=== PATIENT | female | born 1985 | race Hispanic/Latino ===

== ENCOUNTER 2022-11-04 05:24 | Inpatient (IN) | payer MEDICAID, OTHER ==
[2022-11-01 11:07] LABS: Hemoglobin 11.8 g/dL (12.0-15.5); Platelet Count 183 10x3/uL (150-450)
[2022-11-01 11:40] LABS: HBSAg Index 0.14 S/CO (0-0.99); Hep B Surf Ag Non-Reactive S/CO (NonReactive)
[2022-11-01 11:41] LABS: Syphilis Antibody Nonreactive (Nonreactive); Syphilis Antibody Index 0.05 S/CO (<1.00 Non-Reactive)
[2022-11-04 05:41] VITALS: BMI 31.1
[2022-11-04] MEDS ORDERED: Promethazine HCl 25 MG/ML VIAL IM PRN ×3 (05:47→10:36)
[2022-11-04] MEDS ORDERED: Carboprost 250 MCG/ML AMP IM PRN (05:47)
[2022-11-04] MEDS ORDERED: Misoprostol 200 MCG TAB PR PRN ×2 (05:47→10:36)
[2022-11-04] MEDS ORDERED: Ondansetron PF 4 MG/2 ML Vial IVP PRN ×3 (05:47→10:36)
[2022-11-04] MEDS ORDERED: Tranexamic Acid 1,000 MG/10 ML VIAL IVP PRN (05:47)
[2022-11-04] MEDS ORDERED: Methylergonovine 0.2 MG/ML VIAL IM PRN (05:47)
[2022-11-04] MEDS ORDERED: Famotidine/PF 20 mg/2ml Vial SLOW IVP PRN (05:47)
[2022-11-04] MEDS ORDERED: Bicitra 30 ML UDCUP PO PRN (05:47)
[2022-11-04] MEDS ORDERED: hydrALAZINE 20 MG/ML VIAL SLOW IVP PRN ×2 (05:47→10:36)
[2022-11-04] MEDS ORDERED: Diphenoxylate HCl/Atropine Tablet PO PRN (05:47)
[2022-11-04] MEDS ORDERED: NS w/ Oxytocin 30 units 500 ML IV SCH ×2 (06:00→10:36)
[2022-11-04] MEDS ORDERED: CEFAZOLIN 2 GM in Sodium Chloride 0.9% 100 ML IVPB SCH (06:00)
[2022-11-04 06:33] LABS: Hemoglobin 11.3 g/dL (12.0-15.5); Mean Corpuscular HGB CONC 33.5 g/dL (32.0-36.0); Mean Corpuscular Hemoglobin 29.5 pg (27.0-33.0); Mean Platelet Volume 12.8 fl (7.4-10.4); Platelet Count 187 10x3/uL (150-450); RBC Distribution Width 13.7 % (11.5-14.5); Red Blood Cell (RBC) Count 3.83 10x6/uL (3.90-5.03); White Blood Cell (WBC) Count 8.4 10x3/uL (3.5-10.5)
[2022-11-04] MEDS ORDERED: Morphine PF 10 MG/10 ML VIAL ONE (07:02)
[2022-11-04] MEDS ORDERED: Oxytocin 10 UNITS/ML VIAL ONE (07:02)
[2022-11-04] MEDS ORDERED: Phenylephrine 10 MG/ML VIAL ONE (07:02)
[2022-11-04] MEDS ORDERED: Dexamethasone 4 mg/ml Vial ONE (07:02)
[2022-11-04] MEDS ORDERED: Fentanyl 100 MCG/2 ML VIAL ONE (07:02)
[2022-11-04] MEDS ORDERED: Ondansetron PF 4 MG/2 ML Vial ONE (07:02)
[2022-11-04] MEDS ORDERED: Fentanyl 100 MCG/2 ML VIAL SLOW IVP PRN (09:56)
[2022-11-04] MEDS ORDERED: diphenhydrAMINE 50 MG/ML VIAL IVP PRN (09:56)
[2022-11-04] MEDS ORDERED: Moisturizing Cream (Eucerin) 113 GM JAR TOP PRN (09:56)
[2022-11-04] MEDS ORDERED: HYDROmorphone 2 MG/ML VIAL SLOW IVP PRN (09:56)
[2022-11-04] MEDS ORDERED: Ondansetron HCl/PF 4 MG/2 ML Vial IVP PRN (09:56)
[2022-11-04] MEDS ORDERED: Naloxone HCl 0.4 mg/ml Vial IV PRN (09:56)
[2022-11-04] MEDS ORDERED: Meperidine HCl/PF 25 MG/ML VIAL SLOW IVP PRN (09:56)
[2022-11-04] MEDS ORDERED: Naloxone HCl 0.4 mg/ml Vial IVP PRN ×2 (09:56)
[2022-11-04] MEDS ORDERED: Promethazine HCl 25 MG SUPP PR PRN (09:56)
[2022-11-04] MEDS ORDERED: Communication Order-Pharmacy FS SCH (10:00)
[2022-11-04] MEDS ORDERED: Ketorolac Tromethamine 30 MG/ML VIAL IVP SCH (10:00)
[2022-11-04] MEDS ORDERED: Lanolin Ointment 7 GM TUBE TOP PRN (10:36)
[2022-11-04] MEDS ORDERED: Boostrix 0.5 ML (Tdap) VIAL (>/=7 yrs of age) IM ONE (10:36)
[2022-11-04] MEDS ORDERED: Acetaminophen 325 MG TAB PO PRN (10:36)
[2022-11-04] MEDS ORDERED: diphenhydrAMINE 25 MG CAP PO PRN (10:36)
[2022-11-04] MEDS ORDERED: Prenatal Vitamin 1 TAB PO SCH (11:00)
[2022-11-04] MEDS: Ketorolac Tromethamine 30 MG/ML VIAL IVP PRN ×2 (12:09→21:30)
[2022-11-04] MEDS ORDERED: HYDROcodone/Acetaminophen 5/325 mg Tablet PO PRN (22:00)
[2022-11-05 05:01] LABS: Hemoglobin 9.4 g/dL (12.0-15.5); Mean Corpuscular HGB CONC 33.5 g/dL (32.0-36.0); Mean Corpuscular Hemoglobin 29.7 pg (27.0-33.0); Mean Corpuscular Volume 88.6 fl (81.6-98.3); Platelet Count 154 10x3/uL (150-450); RBC Distribution Width 13.6 % (11.5-14.5); Red Blood Cell (RBC) Count 3.17 10x6/uL (3.90-5.03); White Blood Cell (WBC) Count 8.4 10x3/uL (3.5-10.5)
[2022-11-05] MEDS: Ketorolac Tromethamine 30 MG/ML VIAL IVP PRN (06:10)
[2022-11-05] MEDS ORDERED: Ferrous Sulfate 325 MG TAB PO SCH (07:00)
[2022-11-05] MEDS: Prenatal Vitamin 1 TAB PO SCH (08:33)
[2022-11-05] MEDS: HYDROcodone/Acetaminophen 5/325 mg Tablet PO PRN ×3 (08:34→15:35)
[2022-11-05] MEDS: Ibuprofen 800 MG TAB PO SCH ×2 (13:33→22:04)
[2022-11-06] MEDS: Ibuprofen 800 MG TAB PO SCH (05:07)
[2022-11-06 07:45] VITALS: BP 112/76; TEMP 97.7
[2022-11-06] MEDS: Prenatal Vitamin 1 TAB PO SCH (08:09)
== END 2022-11-06 12:30 | disposition home or self-care (01) | DRG 787 ==
LOC: CSHLD 05:24 → CSHPP 11:10
PROVIDERS: ADMIT Obstetrics & Gynecology; ATTEND Obstetrics & Gynecology
PROC: 10D00Z1 Extraction of Products of Conception, Low, Open Approach (ICD-10-PCS; principal; 2022-11-04)
DX: O34.211 Maternal care for low transverse scar from previous cesarean delivery (principal); O10.92 Unspecified pre-existing hypertension complicating childbirth; Z3A.38 38 weeks gestation of pregnancy; Z37.0 Single live birth; Z79.82 Long term (current) use of aspirin
CPT/HCPCS: 36415; 51702; 85014; 85018; 85027; 85049; 86780; 86850; 86900; 86901; 87340; J1100; J1885; J2274; J2370; J2405; J2590; J3010; J3490; S0028